=== PATIENT | female | born 1990 | race Caucasian/White ===

== ENCOUNTER 2018-01-07 19:20 | Emergency (ER) | payer SELFPAY ==
[~2018-01-07] VITALS: Ht 154.9 cm; Wt 79.4 kg
[2018-01-07] MEDS ORDERED: IBUPROFEN 800 MG (MOTRIN) TAB PO ONE ×2 (20:46→21:00)
--- NOTE | 2018-01-07 21:22 | ED General ---
General Chief Complaint: Cough/Cold/Flu Symptoms Stated Complaint: FLU Nursing Triage Note: Pt reports having fever, cough, congestion, muscle aches, chills starting on Thursday. Pt has been taking Theraflu daily, last dose at 1800 Nursing Sepsis Screen: Possible Sepsis Risk Source of Information: Patient Exam Limitations: No Limitations History of Present Illness Date Seen by Provider: Jan 07, 2018 Time Seen by Provider: 19:59 Initial Comments This 28-year-old young lady presents to the emergency room with complaints of fever for 2 days, chills, cough, congestion, and myalgia. Allergies and Home Medications Allergies Coded Allergies: No Known Drug Allergies (Unverified , 01/07/18) Home Medications No Active Prescriptions or Reported Meds Constitutional: see HPI EENTM: see HPI Respiratory: see HPI Cardiovascular: no symptoms reported Gastrointestinal: no symptoms reported Genitourinary: no symptoms reported : No Musculoskeletal: see HPI Skin: no symptoms reported Psychiatric/Neurological: No Symptoms Reported Hematologic/Lymphatic: No Symptoms Reported Immunological/Allergic: no symptoms reported Past Txmvakp-[id number]-Irstyb Hx Patient Social History Recent Foreign Travel: No Contact w/Someone Who Travel: No Recent Infectious Disease Expo: No Surgeries History of Surgeries: No Respiratory History of Respiratory Disorde: No Cardiovascular History of Cardiac Disorders: No Neurological History of Neurological Disord: No Reproductive System : No Last Menstrual Period: Dec 13, 2017 Genitourinary History of Genitourinary Disor: No Gastrointestinal History of Gastrointestinal Di: No Musculoskeletal History of Musculoskeletal Dis: No Endocrine History of Endocrine Disorders: No HEENT History of HEENT Disorders: No Cancer History of Cancer: No Psychosocial History of Psychiatric Problem: No Integumentary History of Skin or Integumenta: No Physical Exam Vital Signs Vital Signs - First Documented 01/07/18 01/07/18 20:40 21:25 Temp 101.6 Pulse 91 Resp 18 B/P (MAP) 128/76 (93) Pulse Ox 98 O2 Delivery Room Air Capillary Refill : Less Than 3 Seconds General Appearance: No Apparent Distress, WD/WN HEENT: PERRL/EOMI, TMs Normal, Normal ENT Inspection, Pharynx Normal Neck: Normal Inspection Respiratory: Lungs Clear, Normal Breath Sounds, No Accessory Muscle Use, No Respiratory Distress Cardiovascular: Regular Rate, Rhythm, No Edema, No Murmur Gastrointestinal: Normal Bowel Sounds, Non Tender, Soft Extremity: Normal Inspection, No Pedal Edema Neurologic/Psychiatric: Alert, Oriented x3, No Motor/Sensory Deficits, Normal Mood/Affect, product management specialist II-XII Norm as Tested Skin: Normal Color, Warm/Dry Progress/Results/Core Measures Suspected Sepsis Recent Fever Within 48 Hours: Yes Infection Criteria Present: Suspected New Infection New/Unexplained Altered Menta: No Sepsis Screen: Possible Sepsis Risk Sepsis Diagnosis: SIRS Temperature:101.6 Pulse: 91 Respiratory Rate: 18 Blood Pressure 128 /76 Mean: 93 Results/Orders Micro Results Microbiology 01/07/18 Influenza Types A,B Antigen (DAMIAN) - Final, Complete My Orders Orders - ERROL KANG MD Ibuprofen Tablet (Motrin Tablet) (01/07/18 21:00) Ibuprofen Tablet (Motrin Tablet) (01/07/18 20:46) Medications Given in ED Vital Signs/I&O Capillary Refill : Less Than 3 Seconds Blood Pressure Mean: 93 Progress Note : Progress Note Influenza screen was positive for influenza B. Patient was offered a prescription for Tamiflu but declined due to cost. Departure Impression Impression: Primary Impression: Influenza Disposition: 01 HOME, SELF-CARE Condition: Stable Departure-Patient Inst. Decision time for Depature: 21:20 Referrals: NO,LOCAL PHYSICIAN (PCP/Family) Primary Care Physician Patient Instructions: Flu, Adult (DC) Add. Discharge Instructions: Drink plenty of clear liquids. You may take Tylenol (acetaminophen) up to 1000 mg every 6 hours as needed for pain and fever. If you're not , you may also take ibuprofen up to 600 mg every 6 hours as needed. Return to care if symptoms worsen. Do not return to work until you are free of fever (100 or greater) without Tylenol use for 24 hours. All discharge instructions reviewed with patient and/or family. Voiced understanding. Scripts No Active Prescriptions or Reported Meds Work/School Note: Work Release Form Date Seen in the Emergency Department: Jan 07, 2018 Return to Work: Jan 09, 2018 Restrictions: Return-No Fever (24hrs) ERROL KANG MD Jan 07, 2018 21:22
[2018-01-07 21:25] VITALS: BP 128/76
== END 2018-01-07 21:25 | disposition home or self-care (01) ==
LOC: ER 19:23
DX: J11.1 Influenza due to unidentified influenza virus with other respiratory manifestations (principal)
CPT/HCPCS: 87804; 99282